=== PATIENT | female | born 1930 | race Caucasian/White ===

== ENCOUNTER 2017-03-17 23:20 | Inpatient (IN) | payer OTHER ==
[~2017-03-17] VITALS: Ht 165.1 cm; Wt 59.4 kg
[~2017-03-17 23:20] MED LIST: CARDIZEM CD,CA240 MG PO; CLONAZEPAM0.25 MG PO; COZAAR25 MG PO; GLUCOPHAGE500 MG PO; LO-DOSE ASPIRIN81 M1 PO; LORAZEPAM1 MG PO; LOVASTATIN20 MG PO; METFORMIN HCL500 MG PO; NOVOLOG PE100 UNITS/ SC; OMEPRAZOLE40 M1 PO; OXYCODONE HCL5 MG PO; PROMETHAZINE HC25 M1 PO; SERTRALINE HCL25 MG PO; SERTRALINE HCL50 MG PO
[2017-03-18 01:05] LABS: HEMATOCRIT 30.5 % (36.0-46.0); MCH 29.4 PG (29.0-34.0); MCHC 33.1 G/DL (30.0-36.0); MCV 88.7 FL (83-99); MEAN PLAT.VOLUME 9.7 uM^3 (9.5-12.4); PLATELET COUNT 247 K/uL (156-360); RBC DIS.WIDTH-CV 12.7 % (11.8-14.6); RED BLOOD COUNT 3.44 M/uL (3.80-5.20); WHITE BLOOD COUNT 13.5 K/uL (4.1-10.2)
[2017-03-18 01:14] LABS: CHLORIDE 102 mEq/L (99-109); POTASSIUM 4.1 mEq/L (3.7-5.4); SODIUM 138 mEq/L (136-147)
[2017-03-18 01:15] LABS: GLUCOSE 214 mg/dL (70-99)
[2017-03-18 01:17] LABS: ANION GAP 11 MEQ/L (2-14)
[2017-03-18] MEDS ORDERED: VENLAFAXINE HCL75 M3 PO (01:17)
[2017-03-18] MEDS ORDERED: AMLODIPINE BES2.5 MG PO (01:17)
[2017-03-18] MEDS ORDERED: LORAZEPAM1 MG PO (01:18)
[2017-03-18 01:19] LABS: GFR ESTIMATE (CALCULATED) 38 mL/min/
[2017-03-18 01:20] LABS: UREA NITROGEN (BUN) 44 mg/dL (9-23)
[2017-03-18 01:26] LABS: TROP-I INTERPRETATION NEGATIVE; TROPONIN-I < 0.01 ng/mL (0.0-0.30)
[2017-03-18 01:39] LABS: INTER. NORMALIZED RATIO 1.1; PROTHROMBIN TIME 10.7 (9.2-11.2); PTT 23.1 (25-32)
[2017-03-18 06:00] LABS: HEMATOCRIT 28.3 % (36.0-46.0); MCH 28.9 PG (29.0-34.0); MCHC 32.5 G/DL (30.0-36.0); MEAN PLAT.VOLUME 10.1 uM^3 (9.5-12.4); PLATELET COUNT 219 K/uL (156-360); RBC DIS.WIDTH-CV 12.5 % (11.8-14.6); RBC DIS.WIDTH-SD 40.7 % (39-53); RED BLOOD COUNT 3.18 M/uL (3.80-5.20); WHITE BLOOD COUNT 10.9 K/uL (4.1-10.2)
[2017-03-18 07:22] LABS: POINT-OF-CARE METER ID UU13113702; POINT-OF-CARE USER ID NUTJLF39
[2017-03-18 11:35] LABS: POINT-OF-CARE METER ID UU13113702
[2017-03-18 14:20] LABS: POINT-OF-CARE METER ID UU13113675; POINT-OF-CARE USER ID ADMSLT55
[2017-03-18 15:38] VITALS: BP 138/61
[2017-03-18 16:40] LABS: POINT-OF-CARE METER ID UU14149397
[2017-03-18 19:31] VITALS: BP 159/69
[2017-03-18 21:48] LABS: POINT-OF-CARE METER ID UU14149397
[2017-03-18 23:19] VITALS: BP 135/63
[2017-03-19 08:17] LABS: HEMATOCRIT 21.5 % (36.0-46.0); MCH 30.4 PG (29.0-34.0); MCV 89.6 FL (83-99); MEAN PLAT.VOLUME 10.6 uM^3 (9.5-12.4); PLATELET COUNT 179 K/uL (156-360); RBC DIS.WIDTH-SD 42.5 % (39-53); WHITE BLOOD COUNT 8.5 K/uL (4.1-10.2)
[2017-03-19 08:32] LABS: ANION GAP 10 MEQ/L (2-14); CHLORIDE 105 MEQ/L (99-109); GFR ESTIMATE (CALCULATED) 50 mL/min/; GLUCOSE 175 mg/dL (70-99); POTASSIUM 3.6 MEQ/L (3.7-5.4); SAMPLE HEMOLYSIS CHECK 0; SAMPLE ICTERIC CHECK 0; SAMPLE LIPEMIA CHECK 0; SODIUM 139 MEQ/L (136-147); UREA NITROGEN (BUN) 29 mg/dL (9-23)
[2017-03-19 08:40] LABS: TROP-I INTERPRETATION NEGATIVE; TROPONIN-I 0.02 ng/mL (0.0-0.30)
[2017-03-19 10:42] VITALS: BP 130/61
[2017-03-19 11:50] VITALS: BP 144/60
[2017-03-19] MEDS ORDERED: DILTIAZEM 24HR240 MG PO (12:51)
[2017-03-19] MEDS ORDERED: HYDROCHLOROTHIA25 MG PO (12:51)
[2017-03-19] MEDS ORDERED: LORAZEPAM1 MG PO (12:52)
[2017-03-19] MEDS ORDERED: NOVOLOG PE100 UNITS/ SC (12:53)
[2017-03-19] MEDS ORDERED: VITAMIN D31000 UNI2 PO (12:57)
[2017-03-19] MEDS ORDERED: CYANOCOBALAM1000 MCG PO (12:57)
[2017-03-19] MEDS ORDERED: MULTI VITAMIN1 EACH PO (12:57)
[2017-03-19] MEDS ORDERED: B COMPLEX #11 EACH PO (12:57)
[2017-03-19 13:00] VITALS: BP 155/72
[2017-03-19 15:29] VITALS: BP 165/72
[2017-03-19 21:33] LABS: POINT-OF-CARE METER ID UU14149397
[2017-03-19 23:45] VITALS: BP 134/74
[2017-03-20 03:42] VITALS: BP 157/86
[2017-03-20 06:43] LABS: HEMATOCRIT 23.7 % (36.0-46.0); MCH 31.1 PG (29.0-34.0); MCHC 34.6 G/DL (30.0-36.0); MCV 89.8 FL (83-99); MEAN PLAT.VOLUME 10.8 uM^3 (9.5-12.4); PLATELET COUNT 169 K/uL (156-360); RBC DIS.WIDTH-CV 13.4 % (11.8-14.6); RBC DIS.WIDTH-SD 44.4 % (39-53); RED BLOOD COUNT 2.64 M/uL (3.80-5.20)
[2017-03-20 06:54] VITALS: BP 167/76
[2017-03-20 07:01] LABS: POINT-OF-CARE METER ID UU14188577
[2017-03-20 07:04] LABS: ANION GAP 13 MEQ/L (2-14); CHLORIDE 105 MEQ/L (99-109); GFR ESTIMATE (CALCULATED) 50 mL/min/; GLUCOSE 205 mg/dL (70-99); POTASSIUM 3.4 MEQ/L (3.7-5.4); SAMPLE HEMOLYSIS CHECK 0; SAMPLE ICTERIC CHECK 0; SAMPLE LIPEMIA CHECK 0; SODIUM 139 MEQ/L (136-147); UREA NITROGEN (BUN) 27 mg/dL (9-23)
[2017-03-20 08:42] LABS: MAGNESIUM 1.5 mg/dl (1.3-2.7)
[2017-03-20 11:52] LABS: POINT-OF-CARE METER ID UU14149397
[2017-03-20 15:35] VITALS: BP 124/60
[2017-03-20 16:14] LABS: POINT-OF-CARE METER ID UU14149397
[2017-03-20 21:30] LABS: POINT-OF-CARE METER ID UU14149397
[2017-03-20 23:28] VITALS: BP 170/73
[2017-03-20 23:45] VITALS: BP 150/60
[2017-03-21] VITALS (7 sets, daily range): BP systolic 129–147; BP diastolic 68–80
[2017-03-21 08:01] LABS: MCH 30.6 PG (29.0-34.0); MCHC 33.9 G/DL (30.0-36.0); MCV 90.2 FL (83-99); MEAN PLAT.VOLUME 11.1 uM^3 (9.5-12.4); PLATELET COUNT 177 K/uL (156-360); RBC DIS.WIDTH-CV 13.3 % (11.8-14.6); RBC DIS.WIDTH-SD 43.8 % (39-53); RED BLOOD COUNT 2.55 M/uL (3.80-5.20); WHITE BLOOD COUNT 8.9 K/uL (4.1-10.2)
[2017-03-21 11:35] LABS: POINT-OF-CARE METER ID UU14188577
[2017-03-21 16:45] LABS: POINT-OF-CARE METER ID UU14149397
[2017-03-21 21:49] LABS: POINT-OF-CARE METER ID UU14149397
[2017-03-22 04:00] VITALS: BP 132/78
[2017-03-22 06:53] LABS: MCV 86.8 FL (83-99)
[2017-03-22 07:24] LABS: ANION GAP 9 MEQ/L (2-14); CHLORIDE 103 MEQ/L (99-109); GFR ESTIMATE (CALCULATED) > 59 mL/min/; GLUCOSE 190 mg/dL (70-99); MAGNESIUM 1.6 mg/dl (1.3-2.7); POTASSIUM 3.9 MEQ/L (3.7-5.4); SAMPLE HEMOLYSIS CHECK 0; SAMPLE ICTERIC CHECK 0; SAMPLE LIPEMIA CHECK 0; UREA NITROGEN (BUN) 27 mg/dL (9-23)
[2017-03-22 07:28] LABS: SODIUM 132 MEQ/L (136-147)
[2017-03-22 07:36] VITALS: BP 179/79
[2017-03-22] MEDS ORDERED: LOSARTAN POTASS25 MG PO (10:53)
[2017-03-22] MEDS ORDERED: LOVENOX30 MG/0.3 SC (10:53)
[2017-03-22] MEDS ORDERED: AMLODIPINE BESYL5 MG PO (10:53)
[2017-03-22] MEDS ORDERED: HYDROCODON-ACE1 EAC7 PO (10:53)
[2017-03-22] MEDS ORDERED: METFORMIN HCL500 M4 PO (10:53)
== END 2017-03-22 13:23 | DRG 481 ==
LOC: EME → EDBD 23:20 → EME 23:20 → EDOF 03-18 04:05 → 3EAST 03-18 04:05
PROVIDERS: Emergency Medicine; Hospitalist; Internal Medicine; Internal Medicine Cardiovascular Disease; Orthopaedic Surgery; Physician Assistant
PROC: 0QS704Z Reposition Left Upper Femur with Internal Fixation Device, Open Approach (ICD-10-PCS; principal; 2017-03-18)
PROC: 30233N1 Transfusion of Nonautologous Red Blood Cells into Peripheral Vein, Percutaneous Approach (ICD-10-PCS; 2017-03-19)
DX: S72.142A Displaced intertrochanteric fracture of left femur, initial encounter for closed fracture (principal); W18.30XA Fall on same level, unspecified, initial encounter; Y92.009 Unspecified place in unspecified non-institutional (private) residence as the place of occurrence of the external cause; R55 Syncope and collapse; D64.9 Anemia, unspecified; D62 Acute posthemorrhagic anemia; N17.9 Acute kidney failure, unspecified; I10 Essential (primary) hypertension; K21.9 Gastro-esophageal reflux disease without esophagitis; E11.9 Type 2 diabetes mellitus without complications; I44.7 Left bundle-branch block, unspecified; M48.00 Spinal stenosis, site unspecified; Z75.1 Person awaiting admission to adequate facility elsewhere; I25.2 Old myocardial infarction; Z79.82 Long term (current) use of aspirin; Z79.4 Long term (current) use of insulin; Z79.84 Long term (current) use of oral hypoglycemic drugs; Z88.1 Allergy status to other antibiotic agents
CPT/HCPCS: 71010; 73502; 76000; 80048; 81003; 82948; 83735; 84484; 85014; 85018; 85027; 85610; 85730; 86900; 86901; 86920; 87086; 93005; 93306; 94640; 97530 GO; 99202; 99281; 99285; C1713; J0690; J1650; J1815; J1940; J2250; J2270; J3010; J3475; J7030; P9016

== ENCOUNTER 2017-09-07 19:54 | Inpatient (IN) | payer OTHER ==
[~2017-09-07] VITALS: Ht 162.6 cm; Wt 54.0 kg
[~2017-09-07 19:54] MED LIST changes: +AMLODIPINE BES2.5 MG PO; +AMLODIPINE BESYL5 MG PO; +B COMPLEX #11 EACH PO; +CYANOCOBALAM1000 MCG PO; +DILTIAZEM 24HR240 MG PO; +GLUCOPHAGE XR,500 MG PO; -GLUCOPHAGE500 MG PO; +HYDROCHLOROTHIA25 MG PO; +HYDROCODON-ACE1 EAC7 PO; +LOSARTAN POTASS25 MG PO; +LOVENOX30 MG/0.3 SC; +METFORMIN HCL500 M4 PO; +MULTI VITAMIN1 EACH PO; +VENLAFAXINE HCL75 M3 PO; +VITAMIN D31000 UNI2 PO
[2017-09-07 21:02] LABS: HEMATOCRIT 33.3 % (36.0-46.0); HEMOGLOBIN 11.2 G/DL (11.9-15.5); MCH 29.1 PG (29.0-34.0); MCHC 33.6 G/DL (30.0-36.0); MCV 86.5 FL (83-99); RBC DIS.WIDTH-CV 13.4 % (11.8-14.6); RBC DIS.WIDTH-SD 42.2 % (39-53); RED BLOOD COUNT 3.85 M/uL (3.80-5.20); WHITE BLOOD COUNT 13.9 K/uL (4.1-10.2)
[2017-09-07 21:09] LABS: PLATELET COUNT 336 K/uL (156-360)
[2017-09-07 21:12] LABS: ALBUMIN 3.7 g/dL (3.2-4.8); CHLORIDE 99 mEq/L (99-109); POTASSIUM 4.7 mEq/L (3.7-5.4); SODIUM 133 mEq/L (136-147)
[2017-09-07 21:14] LABS: GLUCOSE 336 mg/dL (70-99)
[2017-09-07 21:16] LABS: TOTAL BILIRUBIN 0.8 mg/dL (0.0-1.0)
[2017-09-07 21:18] LABS: ALKALINE PHOSPHATASE 58 IU/L (3-129); CREATININE 1.3 mg/dL (0.6-1.3); GFR ESTIMATE (CALCULATED) 41 mL/min/
[2017-09-07 21:19] LABS: AST (GOT) 13 IU/L (2-34); UREA NITROGEN (BUN) 26 mg/dL (9-23)
[2017-09-07 21:21] LABS: ALT (GPT) 15 IU/L (3-49)
[2017-09-07 21:28] LABS: TROP-I INTERPRETATION NEGATIVE; TROPONIN-I 0.06 ng/mL (0.0-0.30)
[2017-09-07 23:34] LABS: TROP-I INTERPRETATION NEGATIVE; TROPONIN-I 0.06 ng/mL (0.0-0.30)
[2017-09-08] VITALS (7 sets, daily range): BP systolic 155–182; BP diastolic 72–98
[2017-09-08 00:43] LABS: CHLORIDE 100 mEq/L (99-109); POTASSIUM 4.2 mEq/L (3.7-5.4); SODIUM 132 mEq/L (136-147)
[2017-09-08 00:44] LABS: GLUCOSE 285 mg/dL (70-99)
[2017-09-08 00:48] LABS: CREATININE 1.1 mg/dL (0.6-1.3); GFR ESTIMATE (CALCULATED) 50 mL/min/
[2017-09-08 00:49] LABS: UREA NITROGEN (BUN) 23 mg/dL (9-23)
[2017-09-08 08:43] LABS: TROP-I INTERPRETATION NEGATIVE; TROPONIN-I 0.07 ng/mL (0.0-0.30)
[2017-09-08 08:53] LABS: CHLORIDE 97 MEQ/L (99-109); GFR ESTIMATE (CALCULATED) 55 mL/min/; GLUCOSE 298 mg/dL (70-99); POTASSIUM 3.9 MEQ/L (3.7-5.4); SODIUM 135 MEQ/L (136-147); UREA NITROGEN (BUN) 24 mg/dL (9-23)
[2017-09-08 09:35] LABS: BASOPHIL (%) 0.2 % (0-1); EOSINOPHIL (%) 0.1 % (0-5); HEMOGLOBIN 10.2 G/DL (11.9-15.5); IMMATURE GRANULOCYTE (%) 0.3 % (0.0-0.7); LYMPHOCYTE (%) 3.9 % (15-42); LYMPHOCYTE COUNT 0.5 K/uL (1.0-2.8); MCH 28.6 PG (29.0-34.0); MCHC 32.9 G/DL (30.0-36.0); MCV 86.8 FL (83-99); MONOCYTE (%) 9.6 % (3-12); MONOCYTE COUNT 1.1 K/uL (0-0.8); NEUTROPHIL (%) 85.9 % (45-76); PLATELET COUNT 268 K/uL (156-360); RBC DIS.WIDTH-CV 13.3 % (11.8-14.6); RBC DIS.WIDTH-SD 42.2 % (39-53); RED BLOOD COUNT 3.57 M/uL (3.80-5.20); WHITE BLOOD COUNT 11.7 K/uL (4.1-10.2)
[2017-09-08] MEDS ORDERED: LOVENOX30 MG/0.3 SC (14:07)
[2017-09-08] MEDS ORDERED: ACETAMINOPHEN325 M1 PO (14:10)
[2017-09-08] MEDS ORDERED: TRAMADOL HCL50 MG PO (14:11)
[2017-09-08] MEDS ORDERED: MIRALAX17 GM PO (14:11)
[2017-09-08 17:08] LABS: APPEARANCE CLEAR ((CLEAR)); BILIRUBIN NEGATIVE; BLOOD SMALL; COLOR YELLOW ((YELLOW)); GLUCOSE (STRIP) NEGATIVE; KETONES NEGATIVE; LEUKOCYTES NEGATIVE; NITRITE NEGATIVE; PROTEIN (STRIP) 30; SPECIFIC GRAVITY 1.017 (1.000-1.030); UROBILINOGEN 0.2 MG/DL (0.2-1.0)
[2017-09-08 17:18] LABS: BACTERIA NONE SEEN /HPF; EPITHELIAL CELLS RARE /HPF; MUCUS NONE SEEN /LPF; RED BLOOD CELLS 0-5 /HPF (0-5); UCUL ADDED? NO; WHITE BLOOD CELLS 0-5 /HPF (0-5)
[2017-09-08 17:25] LABS: TROP-I INTERPRETATION NEGATIVE; TROPONIN-I 0.06 ng/mL (0.0-0.30)
[2017-09-09 00:38] LABS: TROP-I INTERPRETATION NEGATIVE; TROPONIN-I 0.25 ng/mL (0.0-0.30)
[2017-09-09 04:44] VITALS: BP 151/67
[2017-09-09 07:20] LABS: CHLORIDE 99 MEQ/L (99-109); CREATININE 1.2 MG/DL (0.6-1.3); GFR ESTIMATE (CALCULATED) 45 mL/min/; GLUCOSE 286 mg/dL (70-99); POTASSIUM 3.4 MEQ/L (3.7-5.4); SODIUM 136 MEQ/L (136-147); UREA NITROGEN (BUN) 27 mg/dL (9-23)
[2017-09-09 07:26] LABS: Estimated Average Glucose 180 mg/dL (70-123); HEMOGLOBIN A1c (GLYCOHEMOGLOB) 7.9 % HGB (Below 5.7)
[2017-09-09 09:46] VITALS: BP 149/68
[2017-09-09 11:57] VITALS: BP 169/72
[2017-09-09 13:34] LABS: TYPE OF FLUID PLEURAL
[2017-09-09 14:07] LABS: APPEARANCE HAZY-YELLOW; BODY FLUID RBC'S 2000 /MM^3 (0-100); BODY FLUID WBC'S 1381 /MM^3 (0-500)
[2017-09-09 14:30] LABS: BODY FLUID GLUCOSE 306 MG/DL; BODY FLUID LDH 68 IU/L; BODY FLUID PROTEIN < 3.0 G/DL
[2017-09-09 14:33] LABS: BODY FLUID EOSINOPHILS 0 % (0-25); MONONUCLEAR WBC'S 48 %; POLYNUCLEAR WBC'S 52 % (0-25)
[2017-09-09 14:43] VITALS: BP 127/94
[2017-09-09 20:00] VITALS: BP 139/62
[2017-09-09 23:55] VITALS: BP 149/65
[2017-09-10 04:00] VITALS: BP 154/67
[2017-09-10 06:20] LABS: CHLORIDE 94 MEQ/L (99-109); CREATININE 1.6 MG/DL (0.6-1.3); GFR ESTIMATE (CALCULATED) 32 mL/min/; GLUCOSE 230 mg/dL (70-99); POTASSIUM 3.4 MEQ/L (3.7-5.4); SODIUM 132 MEQ/L (136-147); UREA NITROGEN (BUN) 40 mg/dL (9-23)
[2017-09-10 08:30] VITALS: BP 145/73
[2017-09-10 11:53] VITALS: BP 131/61
[2017-09-10 19:21] VITALS: BP 150/69
[2017-09-10 23:22] VITALS: BP 130/74
[2017-09-11] VITALS (7 sets, daily range): BP systolic 125–190; BP diastolic 62–89
[2017-09-11 05:05] LABS: HEMATOCRIT 28.3 % (36.0-46.0); HEMOGLOBIN 9.8 G/DL (11.9-15.5); MCH 29.4 PG (29.0-34.0); MCHC 34.6 G/DL (30.0-36.0); PLATELET COUNT 337 K/uL (156-360); RBC DIS.WIDTH-CV 13.2 % (11.8-14.6); RBC DIS.WIDTH-SD 40.7 % (39-53); RED BLOOD COUNT 3.33 M/uL (3.80-5.20); WHITE BLOOD COUNT 10.5 K/uL (4.1-10.2)
[2017-09-11 05:17] LABS: CHLORIDE 95 mEq/L (99-109); POTASSIUM 3.4 mEq/L (3.7-5.4); SODIUM 131 mEq/L (136-147)
[2017-09-11 05:18] LABS: GLUCOSE 228 mg/dL (70-99)
[2017-09-11 05:22] LABS: GFR ESTIMATE (CALCULATED) 21 mL/min/
[2017-09-11 05:23] LABS: CREATININE 2.3 mg/dL (0.6-1.3); UREA NITROGEN (BUN) 49 mg/dL (9-23)
[2017-09-11 09:29] LABS: CHLORIDE 95 MEQ/L (99-109); GFR ESTIMATE (CALCULATED) 25 mL/min/; GLUCOSE 280 mg/dL (70-99); SODIUM 133 MEQ/L (136-147); UREA NITROGEN (BUN) 51 mg/dL (9-23)
[2017-09-11 09:30] LABS: POTASSIUM 4.3 MEQ/L (3.7-5.4)
[2017-09-12 00:25] VITALS: BP 138/62
[2017-09-12 04:22] VITALS: BP 146/65
[2017-09-12 05:39] LABS: BASOPHIL (%) 0.4 % (0-1); BASOPHIL COUNT 0.1 K/uL (0-0.1); EOSINOPHIL (%) 5.9 % (0-5); EOSINOPHIL COUNT 0.7 K/uL (0-0.3); HEMATOCRIT 29.3 % (36.0-46.0); HEMOGLOBIN 9.6 G/DL (11.9-15.5); IMMATURE GRANULOCYTE (%) 1.6 % (0.0-0.7); LYMPHOCYTE (%) 5.6 % (15-42); LYMPHOCYTE COUNT 0.6 K/uL (1.0-2.8); MCH 28.3 PG (29.0-34.0); MCHC 32.8 G/DL (30.0-36.0); MCV 86.4 FL (83-99); MONOCYTE (%) 11.3 % (3-12); MONOCYTE COUNT 1.3 K/uL (0-0.8); NEUTROPHIL (%) 75.2 % (45-76); NEUTROPHIL COUNT 8.4 K/uL (1.8-6.4); PLATELET COUNT 374 K/uL (156-360); RBC DIS.WIDTH-CV 13.1 % (11.8-14.6); RBC DIS.WIDTH-SD 41.4 % (39-53); RED BLOOD COUNT 3.39 M/uL (3.80-5.20); WHITE BLOOD COUNT 11.1 K/uL (4.1-10.2)
[2017-09-12 05:59] LABS: ALBUMIN 2.7 G/DL (3.2-4.8); CHLORIDE 95 MEQ/L (99-109); CREATININE 2.1 MG/DL (0.6-1.3); GFR ESTIMATE (CALCULATED) 24 mL/min/; GLUCOSE 239 mg/dL (70-99); IRON 23 MCG/DL (35-150); PHOSPHORUS 3.6 mg/dL (2.5-4.9); POTASSIUM 4.1 MEQ/L (3.7-5.4); SODIUM 132 MEQ/L (136-147); TRANSFERRIN (TIBC) 154.3 mg/dL (215-380); TRANSFERRIN SATUR. 15 % (20-55); UREA NITROGEN (BUN) 53 mg/dL (9-23)
[2017-09-12 06:16] LABS: URIC ACID 10.3 mg/dL (3.1-9.2)
[2017-09-12 08:01] VITALS: BP 149/67
[2017-09-12 08:01] LABS: THYROTROPIN (TSH) 2.1 MIU/L (0.4-5.5)
[2017-09-12 12:00] VITALS: BP 154/69
[2017-09-12] MEDS ORDERED: CARDIZEM CD,CA180 MG PO (17:22)
[2017-09-12] MEDS ORDERED: JANUVIA25 MG PO (17:22)
[2017-09-12] MEDS ORDERED: HYDROCODON-ACE1 EAC7 PO (17:22)
[2017-09-12] MEDS ORDERED: BYSTOLIC10 MG PO (17:22)
[2017-09-12 19:10] VITALS: BP 145/65
== END 2017-09-12 21:30 | DRG 187 ==
LOC: EME → EDBD 19:54 → EME 19:54 → EDOF 09-08 02:02 → 4EAST 09-08 02:02 → ENRESERV 09-08 02:13 → 4EAST 09-08 03:29
PROVIDERS: Emergency Medicine Emergency Medical Services; Family Medicine; Internal Medicine Cardiovascular Disease; Internal Medicine Nephrology
PROC: 0W993ZZ Drainage of Right Pleural Cavity, Percutaneous Approach (ICD-10-PCS; principal; 2017-09-09)
DX: J90 Pleural effusion, not elsewhere classified (principal); J84.9 Interstitial pulmonary disease, unspecified; R07.89 Other chest pain; I12.9 Hypertensive chronic kidney disease with stage 1 through stage 4 chronic kidney disease, or unspecified chronic kidney disease; E11.22 Type 2 diabetes mellitus with diabetic chronic kidney disease; N18.3 Chronic kidney disease, stage 3 (moderate); N17.9 Acute kidney failure, unspecified; T50.1X5A Adverse effect of loop [high-ceiling] diuretics, initial encounter; I27.20 Pulmonary hypertension, unspecified; F41.9 Anxiety disorder, unspecified; F32.9 Major depressive disorder, single episode, unspecified; G89.4 Chronic pain syndrome; M48.00 Spinal stenosis, site unspecified; I44.7 Left bundle-branch block, unspecified; M19.90 Unspecified osteoarthritis, unspecified site; I25.2 Old myocardial infarction; Z87.891 Personal history of nicotine dependence; Z90.49 Acquired absence of other specified parts of digestive tract; Z79.82 Long term (current) use of aspirin; Z79.84 Long term (current) use of oral hypoglycemic drugs
CPT/HCPCS: 36415; 71010; 71020; 71275; 76770; 76942; 80048; 80048 91; 80053; 80069; 81003; 82150; 82565; 82570; 82945; 82948; 83036; 83540; 83615 91; 83690; 83880; 84156; 84157; 84443; 84466; 84484; 84520; 84550; 85025; 85027; 85379; 85610; 85730; 86850; 86900; 86901; 87040; 87070; 87075; 87205; 87641; 88108; 88305; 89051; 93005; 93306; 93975; 94010; 94640; 94640 76; 94799; 97530 GO; 99202; 99281; 99285; G0480; J0692; J1650; J1815; J1940; J2060; J7030

== ENCOUNTER → 2017-09-23 | Outpatient (CLI) | payer OTHER ==
[~2017-09-23] MED LIST changes: +ACETAMINOPHEN325 M1 PO; +APRESOLINE50 MG PO; +BYSTOLIC10 MG PO; +CARDIZEM CD,CA180 MG PO; +JANUVIA25 MG PO; +LASIX40 MG PO; +MIRALAX17 GM PO; +TRAMADOL HCL50 MG PO
[2017-09-23 09:09] LABS: TYPE OF FLUID PLEURAL
[2017-09-23 09:58] LABS: APPEARANCE SL. HAZY-COLORLESS; BODY FLUID EOSINOPHILS 53 % (0-25); BODY FLUID RBC'S 1000 /MM^3 (0-100); BODY FLUID WBC'S 3526 /MM^3 (0-500); MONONUCLEAR WBC'S 47 %; POLYNUCLEAR WBC'S 0 % (0-25)
[2017-09-23 11:37] LABS: BODY FLUID GLUCOSE 190 MG/DL; BODY FLUID LDH 224 IU/L; BODY FLUID PROTEIN 3.1 G/DL
== END | disposition home or self-care (01) ==
LOC: RAD 07:53 → EDSTATUS 08:00 → RAD 13:00
PROVIDERS: Radiology Diagnostic Radiology
PROC: 0W993ZZ Drainage of Right Pleural Cavity, Percutaneous Approach (ICD-10-PCS; principal; 2017-09-23)
DX: J90 Pleural effusion, not elsewhere classified (principal)
CPT/HCPCS: 76942; 82945; 83615 91; 84157; 87070; 87075; 87205; 88108; 88305; 89051